=== PATIENT | female | born 1990 | race Caucasian/White ===

== ENCOUNTER 2017-11-26 23:12 | Emergency (ER) | payer OTHER ==
[~2017-11-26] VITALS: Ht 157.5 cm; Wt 78.9 kg
[~2017-11-26 23:12] MED LIST: Verotin-Gr Cap1 EACH
== END 2017-11-27 01:02 | disposition home or self-care (01) ==
LOC: ER 23:12
DX: S92.425A Nondisplaced fracture of distal phalanx of left great toe, initial encounter for closed fracture (principal); Z87.891 Personal history of nicotine dependence; Z88.0 Allergy status to penicillin; W20.8XXA Other cause of strike by thrown, projected or falling object, initial encounter
CPT/HCPCS: 73660; 99283

== ENCOUNTER 2020-11-25 12:30 | Inpatient (IN) | payer OTHER ==
[~2020-11-25] VITALS: Ht 160 cm; Wt 109.0 kg
[~2020-11-25 12:30] MED LIST changes: +ALBU90OI61 INH; +BENZ100A PO
[2020-11-28 07:42] LABS: BASOPHILS ABSOLUTE AUTO 0.08 K/mm3 (0.00-0.23); BASOPHILS PERCENT AUTO 1 % (0-2); EOSINOPHILS ABSOLUTE AUTO 0.12 K/mm3 (0.00-0.68); EOSINOPHILS PERCENT AUTO 1 % (0-6); Hematocrit 36.1 % (33.0-51.0); Hemoglobin 11.5 g/dL (11.5-16.0); IMMATURE GRAN ABSOLUTE AUTO 0.68 K/mm3 (0.00-0.10); IMMATURE GRAN PERCENT AUTO 5 % (0-1); LYMPHOCYTES ABSOLUTE AUTO 2.05 K/mm3 (0.84-5.20); LYMPHOCYTES PERCENT AUTO 15 % (21-46); MONOCYTES ABSOLUTE AUTO 0.98 K/mm3 (0.16-1.47); MONOCYTES PERCENT AUTO 7 % (4-13); Mean Corpuscular HGB 30.9 pg (26.0-34.0); Mean Corpuscular HGB Conc 31.9 g/dL (31.5-36.5); Mean Corpuscular Volume 97 fL (80-100); Mean Platelet Volume 10.7 fL (9.1-12.4); NEUTROPHILS PERCENT AUTO 72 % (41-73); Platelet Count 242 K/mm3 (150-400); RDW Coefficient Variation 15.7 % (11.7-14.2); RDW Standard Deviation 56.2 fL (35.1-46.3); Red Blood Cell Count 3.72 M/mm3 (3.80-5.20); White Blood Cell Count 14.01 K/mm3 (4.00-11.30)
--- NOTE | 2020-11-28 09:16 | NUR ---
11/28/20 0916 Sintia Ledbetter PT DELIVERED VIA REPEAT SECTION AT 0848. VIABLE FEMALE. APGARS 9/9. WT 8 LBS 13 OZ. 19.5 IN LONG. 15 IN HEAD. 15.25 IN CHEST. CORD BLOOD WAS COLLECTED AND GIVEN TO PAPI RAMIREZ TO SEND TO LAB. PT IS COVID-19 POSITIVE AND ISOLATION PROTOCOLS WERE FOLLOWED PER HOSPITAL POLICY.
--- NOTE | 2020-11-28 17:50 | NUR ---
PT HAD AN ELECTIVE RCS THIS AM. PT HAS VANESSA IN PLACE DRAINING YELLOW URINE, 18G SL IN LEFT HAND THAT FLUSHES WELL. PT WAS MEDICATED WITH NORCO AND TORDOL AND NEED FENTANYL X1 FOR BRAKE THROUGH PAIN. PT HARIS NAUSEA AND HAS TOLORATED FOOD AND PO FLUIDS. PT SAT IN CHAIR FOR DINNER AND TOLORATED WELL, NB WELL WITH NO ASSISTANCE. PT IS COVID POSITIVE AND DENYING ANY S&S. CALL LIGHT IN REACH WILL REPORT TO NOC RN.
[2020-11-29 05:51] LABS: Hemoglobin 10.3 g/dL (11.5-16.0); Mean Corpuscular HGB 30.6 pg (26.0-34.0); Mean Corpuscular HGB Conc 31.2 g/dL (31.5-36.5); Mean Corpuscular Volume 98 fL (80-100); Mean Platelet Volume 10.5 fL (9.1-12.4); Platelet Count 251 K/mm3 (150-400); RDW Coefficient Variation 15.9 % (11.7-14.2); RDW Standard Deviation 57.1 fL (35.1-46.3); Red Blood Cell Count 3.37 M/mm3 (3.80-5.20); White Blood Cell Count 13.54 K/mm3 (4.00-11.30)
[2020-11-29] MEDS ORDERED: Percocet 5-3251 EACH PO (11:27)
--- NOTE | 2020-12-03 15:20 | NUR ---
LATE ENTRY PAS PER EMR
== END 2020-11-29 12:00 | disposition home or self-care (01) | DRG 788 ==
LOC: BC 11-28 06:47
PROVIDERS: ADMIT Obstetrics & Gynecology
PROC: 10D00Z1 Extraction of Products of Conception, Low, Open Approach (ICD-10-PCS; principal; 2020-11-28 08:30)
DX: O34.211 Maternal care for low transverse scar from previous cesarean delivery (principal); O99.214 Obesity complicating childbirth; E66.01 Morbid (severe) obesity due to excess calories; Z20.822 Contact with and (suspected) exposure to COVID-19; Z3A.39 39 weeks gestation of pregnancy; Z37.0 Single live birth; Z87.891 Personal history of nicotine dependence
CPT/HCPCS: 36415; 51702; 85025; 85027; 86850; 86900; 86901; A9270; J0690; J1885; J2590; J2765; J3010; J7120

== ENCOUNTER → 2021-11-23 | Outpatient (CLI) | payer OTHER ==
[~2021-11-23] MED LIST changes: +Percocet 5-3251 EACH PO
== END | disposition home or self-care (01) ==
LOC: LAB SHORT 17:45
PROVIDERS: Advanced Practice Midwife
DX: Z01.419 Encounter for gynecological examination (general) (routine) without abnormal findings (principal)
CPT/HCPCS: G0123

== ENCOUNTER → 2025-01-03 | Outpatient (CLI) | payer BC ==
[2025-01-03 19:54] LABS: Bacterial Vaginosis PCR Negative (NEGATIVE); Candida Group, PCR NOT DETECTED (NOT DETECT); Candida glabrata-krusei, PCR NOT DETECTED (NOT DETECT)
[2025-01-09 09:50] LABS: HPV HIGH RISK BY TMA Not Detected; HPV SOURCE Cervical
== END ==
LOC: LAB SHORT 17:18 → LAB 17:18
PROVIDERS: Advanced Practice Midwife
DX: Z01.419 Encounter for gynecological examination (general) (routine) without abnormal findings (principal); N76.0 Acute vaginitis
CPT/HCPCS: 81515; 87624; G0123